=== PATIENT | male | born 1975 | race Hispanic/Latino ===

== ENCOUNTER 2021-11-19 18:49 | Emergency (ER) | payer BC ==
[2021-11-19] MEDS ORDERED: NALOXONE 0.4 MG/1 ML INJ IV PRN (19:09)
--- NOTE | 2021-11-19 19:10 | Emergency Department Report ---
ED General Adult HPI - General Chief complaint: Overdose Stated complaint: OVERDOSE Time Seen by Provider: 11/19/21 19:03 Source: patient, EMS ( EMS documentation not available at time of chart dictation ), RN notes reviewed Mode of arrival: Stretcher Limitations: No Limitations - History of Present Illness Initial comments: Chief complaint: I overdosed on heroin This patient is a pleasant and cooperative 46-year-old gentleman who presents to the ER after accidental recreational overdose on heroin. He reportedly received Narcan via EMS. He denies physical pain. He denies homicidality and suicidality. He is asking to be discharged. He felt very nauseous after receiving Narcan here in the emergency room. -: Sudden Consistency: now resolved Improves with: medication Worsens with: none Associated Symptoms: denies other symptoms, nausea/vomiting - Related Data Previous Rx's Medication Instructions Recorded Last Taken Type Naloxone HCl [Narcan Nasal [place]] 4 mg NS PRN PRN #1 spray 11/19/21 Unknown Rx Ondansetron [Zofran Odt] 4 mg PO Q8HR PRN #20 tab.rapdis 11/19/21 Unknown Rx Allergies Allergy/AdvReac Type Severity Reaction Status Date / Time No Known Allergies Allergy Unverified 11/19/21 20:06 ED Review of Systems ROS: Stated complaint: OVERDOSE Other details as noted in HPI Comment: All other systems reviewed and negative Gastrointestinal: nausea, vomiting ED Past Medical Hx - Medications Home Medications: Home Medications Medication Instructions Recorded Confirmed Last Taken Type Naloxone HCl [Narcan Nasal [place]] 4 mg NS PRN PRN #1 spray 11/19/21 Unknown Rx Ondansetron [Zofran Odt] 4 mg PO Q8HR PRN #20 tab.rapdis 11/19/21 Unknown Rx ED Physical Exam - General Limitations: No Limitations General appearance: alert, in no apparent distress, obese - Head Head exam: Present: atraumatic, normocephalic - Eye Eye exam: Present: normal appearance, EOMI. Absent: nystagmus - ENT ENT exam: Present: normal exam, normal orophraynx, mucous membranes moist, normal external ear exam - Neck Neck exam: Present: normal inspection. Absent: tenderness, meningismus - Respiratory Respiratory exam: Present: normal lung sounds bilaterally. Absent: respiratory distress, wheezes, rales, rhonchi, stridor, decreased breath sounds - Cardiovascular Cardiovascular Exam: Present: regular rate, normal rhythm, normal heart sounds. Absent: bradycardia, tachycardia, irregular rhythm, systolic murmur, diastolic murmur, rubs, gallop - GI/Abdominal GI/Abdominal exam: Present: soft. Absent: distended, tenderness, guarding, rebound, rigid, pulsatile mass - Rectal Rectal exam: Present: deferred - Extremities Exam Extremities exam: Present: normal inspection, full ROM, other (2+ pulses noted in the bilateral upper and lower extremities. There is no palpable cord. negative Homans sign. Muscular compartments are soft. The pelvis is stable.). Absent: pedal edema, calf tenderness - Back Exam Back exam: Present: normal inspection. Absent: tenderness, CVA tenderness (R), CVA tenderness (L), paraspinal tenderness, vertebral tenderness - Neurological Exam Neurological exam: Present: alert, oriented X3, other (No facial droop. Tongue midline. Extraocular movements intact bilaterally. Facial sensation intact to light touch in V1, V2, V3 distribution bilaterally. 5 and a 5 strength in 4 extremities. Sensation intact to light touch in 4 extremities.). Absent: motor sensory deficit - Psychiatric Psychiatric exam: Absent: homicidal ideation, suicidal ideation - Skin Skin exam: Present: warm, dry, intact, normal color. Absent: rash ED Course Vital Signs 11/19/21 11/19/21 11/19/21 19:12 19:16 19:30 Pulse Rate 91 H 95 H 89 Respiratory 8 L 9 L 8 L Rate Blood Pressure 123/81 123/81 O2 Sat by Pulse 97 88 96 Oximetry 11/19/21 11/19/21 19:46 20:00 Pulse Rate 84 119 H Respiratory 18 17 Rate Blood Pressure 123/81 136/88 O2 Sat by Pulse 84 98 Oximetry - Reevaluation(s) Reevaluation #1: 11/19/21 20:16 Differential diagnosis, including but not limited to: Narcotic overdose Assessment and plan: 46-year-old gentleman status post recreational accidental narcotic overdose. He is not homicidal or suicidal. He is awake, alert, oriented. He is minimally hypoxic, and thus required administration of Narcan. He became very symptomatic after administration of Narcan, and was thus medicated with antiemetic medication. We will observe patient in the emergency room for 4 to 6 hours after last Narcan administration. Should he not require additional Narcan, could consider discharge. Should he require additional Narcan, will recommend admission for observation supportive care. Patient awake, alert, oriented at this time, and exhibits decision-making capacity. He does not meet criteria for 1013 or 2013. 11/19/21 20:21 Went back to reevaluate the patient. He is currently awake, alert, oriented, s leil[place] of sound mind and exhibits decision-making capacity. He is asking to leave the department. Explained to patient that I would not medically recommended, and specifically discussed the risks of leaving, including recurrent respiratory cessation, , disability, paralysis, and permanent loss of quality of life. Patient is awake and alert, free from distracting injury, and articulates under standing. RN Brooklyn Nance present for conversation. Return precautions reviewed. 11/19/21 20:22 ED Medical Decision Making - Lab Data Result diagrams: 11/19/21 19:20 11/19/21 19:20 Vital Signs 11/19/21 11/19/21 11/19/21 19:12 19:16 19:30 Pulse Rate 91 H 95 H 89 Respiratory 8 L 9 L 8 L Rate Blood Pressure 123/81 123/81 O2 Sat by Pulse 97 88 96 Oximetry 11/19/21 11/19/21 19:46 20:00 Pulse Rate 84 119 H Respiratory 18 17 Rate Blood Pressure 123/81 136/88 O2 Sat by Pulse 84 98 Oximetry Lab Results 11/19/21 11/19/21 11/19/21 Range/Units 19:20 19:20 19:20 Hgb 14.2 (11.8-15.2) gm/dl Hct 41.3 (35.5-45.6) % Sodium 138 (137-145) mmol/L Potassium 3.4 L (3.6-5.0) mmol/L Chloride 102.2 (98-107) mmol/L Carbon Dioxide 26 (22-30) mmol/L Anion Gap 13 mmol/L BUN 15 (9-20) mg/dL Creatinine 0.9 (0.8-1.3) mg/dL Estimated GFR > 60 ml/min BUN/Creatinine Ratio 17 % Glucose 108 H (75-100) mg/dL Calcium 9.2 (8.4-10.2) mg/dL Total Bilirubin 0.40 (0.1-1.2) mg/dL AST 16 (5-40) units/L ALT 16 (7-56) units/L Alkaline Phosphatase 68 (35-129) units/L Total Protein 6.2 L (6.3-8.2) g/dL Albumin 3.8 L (3.9-5) g/dL Albumin/Globulin Ratio 1.6 % Salicylates < 0.3 L (2.8-20.0) mg/dL Acetaminophen (10.0-30.0) ug/mL Plasma/Serum Alcohol (0-0.07) % 11/19/21 11/19/21 Range/Units 19:20 19:20 Hgb (11.8-15.2) gm/dl Hct (35.5-45.6) % Sodium (137-145) mmol/L Potassium (3.6-5.0) mmol/L Chloride (98-107) mmol/L Carbon Dioxide (22-30) mmol/L Anion Gap mmol/L BUN (9-20) mg/dL Creatinine (0.8-1.3) mg/dL Estimated GFR ml/min BUN/Creatinine Ratio % Glucose (75-100) mg/dL Calcium (8.4-10.2) mg/dL Total Bilirubin (0.1-1.2) mg/dL AST (5-40) units/L ALT (7-56) units/L Alkaline Phosphatase (35-129) units/L Total Protein (6.3-8.2) g/dL Albumin (3.9-5) g/dL Albumin/Globulin Ratio % Salicylates (2.8-20.0) mg/dL Acetaminophen 5.0 L (10.0-30.0) ug/mL Plasma/Serum Alcohol < 0.01 (0-0.07) % - EKG Data -: EKG Interpreted by Nh EKG shows normal: sinus rhythm Rate: normal - EKG Data 11/19/21 20:15 The EKG is interpreted at 19: 07 Sinus rhythm, 91 bpm. Normal axis, normal P wave axis, QTC 4 6 0 ms, and poor R wave progression. There is motion artifact. This is an abnormal EKG. This is not a STEMI. There is no prior EKG available for comparison Critical Care Time: Yes Critical care time in (mins) excluding proc time.: 35 Critical care attestation.: If time is entered above; I have spent that time in minutes in the direct care of this critically ill patient, excluding procedure time. ED Disposition Clinical Impression: Opioid overdose Qualifiers: Encounter type: initial encounter Injury intent: accidental or unintentional Qualified Code(s): T40.2X1A - Poisoning by other opioids, accidental (unintentional), initial encounter Disposition: 07 LEFT AGAINST MEDICAL ADVICE Is pt being admited?: No Does the pt Need Aspirin: No Condition: Undetermined Instructions: Opioid Overdose Additional Instructions: As we discussed, you have left the hospital/emergency room AGAINST MEDICAL ADVICE. By leaving, you risked , disability, paralysis, permanent loss of quality of life. The ER is open 24 hours a day, 7 days a week. It never closes. Please return to the emergency room right away if and when you change your mind. If you decide not to return to the emergency room, please follow-up with the listed physician referrals as soon as possible. Do not drive or operate motor vehicles. Take the Zofran as needed for nausea and vomiting. Take the Narcan as needed for sensation of opioid overdose Referrals: [facility] [Provider Group] - [facility]. Health Depart [Outside] - [facility]. Mental Health [Outside] - [facility] Forms: AMA Form
[2021-11-19 19:37] LABS: Hematocrit 41.3 % (35.5-45.6); Hemoglobin 14.2 gm/dl (11.8-15.2)
[2021-11-19 19:57] LABS: Alanine Aminotransferase 16 units/L (7-56); Albumin 3.8 g/dL (3.9-5); BUN/Creatinine Ratio 17; Blood Urea Nitrogen 15 mg/dL (9-20); Calcium 9.2 mg/dL (8.4-10.2); Hemolysis Index 3
[2021-11-19] MEDS ORDERED: ONDANSETRON 4 MG/2 ML INJ IV ONE (19:58)
[2021-11-19 20:32] VITALS: BP 136/88
--- NOTE | 2021-11-20 18:02 | Electrocardiograph Report ---
[facility] Test Date: 2021-11-19 Test Time: 19:07:08 Pat Name: PASTORA WHITTAKER Department: Room: Gender: M Information Technology Consultant: CAROLIN DOYLE : 1975 Requested By: TATYANA DRAPER Order Number: [id number] Reading MD: Osvaldo Tsai Measurements Intervals [place] Rate: 91 P: 19 CA: 147 QRS: 25 QRSD: 91 T: 44 QT: 374 QTc: 460 Interpretive Statements Sinus rhythm Probable left atrial enlargement No previous ECG available for comparison Electronically Signed On 11-20-2021 18:01:56 EDT by Osvaldo Tsai
== END 2021-11-19 20:48 | disposition left against medical advice (07) ==
LOC: ED 18:49
DX: T40.1X1A Poisoning by heroin, accidental (unintentional), initial encounter (principal); Y92.89 Other specified places as the place of occurrence of the external cause
CPT/HCPCS: 36415; 80053; 85014; 85018; 93005; 96374; 96375; 99284; J2310; J2405; 80320; G0480